=== PATIENT | male | born 1975 | race Caucasian/White ===

== ENCOUNTER 2025-03-25 08:30 | Outpatient (CLI) | payer MEDICAID ==
--- NOTE | 2025-03-25 12:58 | RADIOLOGY REPORT ---
EXAM: DI FOOT, COMPLETE (3VW MIN), DI FOOT, COMPLETE (3VW MIN) CLINICAL INDICATION: TENDONITIS TECHNIQUE: DI FOOT, COMPLETE (3VW MIN), DI FOOT, COMPLETE (3VW MIN) Comparison: None FINDINGS/IMPRESSION: There is no evidence of acute fracture or dislocation. The visualized joint space is well maintained. The alignment is anatomical. There is no radiopaque foreign body.
--- NOTE | 2025-03-25 12:58 | RADIOLOGY REPORT ---
EXAM: DI FOOT, COMPLETE (3VW MIN) CLINICAL INDICATION: TENDONITIS TECHNIQUE: DI FOOT, COMPLETE (3VW MIN) Comparison: None FINDINGS/IMPRESSION: There is no evidence of acute fracture or dislocation. The visualized joint space is well maintained. The alignment is anatomical. There is no radiopaque foreign body.
== END 2025-03-25 23:59 | disposition home or self-care (01) ==
LOC: RAD 08:30
PROVIDERS: ATTEND Family Medicine
DX: M77.9 Enthesopathy, unspecified (principal)
CPT/HCPCS: 73630